=== PATIENT | female | born 2000 | race Caucasian/White ===

== ENCOUNTER 2022-01-26 17:02 | Emergency (ER) | payer OTHER ==
[~2022-01-26] VITALS: Ht 165.1 cm; Wt 68.0 kg
[2022-01-26] MEDS ORDERED: IBUPROFEN 600 MG TABLET PO ONE (18:15)
--- NOTE | 2022-01-26 18:24 | NUR ---
Patient discharged to home in stable condition. Written and verbal after care instructions given. Patient verbalizes understanding of instructions. Stressed follow up or return to ER for worsening s/s.
[2022-01-26] MEDS ORDERED: IBUPROFEN 600 MG TABLET ONE (18:32)
== END 2022-01-26 18:32 | disposition home or self-care (01) ==
LOC: ER 17:02
DX: S06.0X0A Concussion without loss of consciousness, initial encounter (principal); S16.1XXA Strain of muscle, fascia and tendon at neck level, initial encounter; W17.89XA Other fall from one level to another, initial encounter; Y93.11 Activity, swimming; Y92.89 Other specified places as the place of occurrence of the external cause
CPT/HCPCS: 70450; 72125; A4663